=== PATIENT | male | born 1975 | race Caucasian/White ===

== ENCOUNTER 2018-07-16 23:52 | Emergency (ER) | payer BC ==
--- NOTE | 2018-07-17 00:56 | ED ---
General Adult HPI - General Chief complaint: Skin/Abscess/Foreign Body Stated complaint: Shingles Time Seen by Provider: 07/16/18 23:59 Source: patient Mode of arrival: ambulatory Limitations: no limitations - History of Present Illness Initial comments: 43-year-old male patient presents to the emergency department today for evaluation of shingles lesions to the right side of his face. Patient states he was seen and evaluated by his primary care physician yesterday diagnosed with shingles and started on valacyclovir. Patient was instructed to present to the emergency department if lesions should start to move closer to the eye. Patient states that he developed a lesion to the right lower eyelid and became concerned so presented here to be seen. Patient is reporting pain to the right side of his face. States some of the lesions have opened and are draining. He denies any discomfort to the eye. Denies any difficulty with vision. He denies fevers or chills with this. - Related Data Previous Rx's Medication Instructions Recorded Ibuprofen [Motrin] 600 mg PO Q8HR PRN #30 tab 07/17/18 Allergies Allergy/AdvReac Type Severity Reaction Status Date / Time Penicillins Allergy Wheezing Verified 07/16/18 23:58 shellfish derived [Shrimp] Allergy Anaphylaxis Verified 07/16/18 23:58 Sulfa (Sulfonamide Allergy Wheezing Verified 07/16/18 23:58 Antibiotics) Review of Systems ROS Statement: Those systems with pertinent positive or pertinent negative responses have been documented in the HPI. ROS Other: All systems not noted in ROS Statement are negative. Past Medical History Past Medical History: Hyperlipidemia Additional Past Medical History / Comment(s): hypercalcemia History of Any Multi-Drug Resistant Organisms: None Reported Past Surgical History: Tonsillectomy Past Psychological History: No Psychological Hx Reported Smoking Status: Never smoker Past Alcohol Use History: Occasional Past Drug Use History: None Reported General Exam Limitations: no limitations General appearance: alert, in no apparent distress, other (Social well- developed, well-nourished adult male patient in no acute distress. Vital signs upon presentation are temperature 98.6F, pulse 105, respirations 18, blood pressure 143/90, pulse ox 97% on room air.) Eye exam: Present: normal appearance, PERRL, EOMI, other (No conjunctival injection, no drainage.). Absent: scleral icterus, conjunctival injection, periorbital swelling ENT exam: Present: normal exam, normal oropharynx, mucous membranes moist Respiratory exam: Present: normal lung sounds bilaterally. Absent: respiratory distress, wheezes, rales, rhonchi, stridor Cardiovascular Exam: Present: regular rate, normal rhythm, normal heart sounds. Absent: systolic murmur, diastolic murmur, rubs, gallop, clicks Neurological exam: Present: alert, oriented X3, CN II-XII intact Psychiatric exam: Present: normal affect, normal mood Skin exam: Present: warm, dry, intact, normal color. Absent: rash Course Vital Signs 07/16/18 07/17/18 23:55 01:27 Temperature 98.6 F 98.7 F Pulse Rate 105 H 79 Respiratory 18 20 Rate Blood Pressure 143/90 135/78 O2 Sat by Pulse 97 99 Oximetry Medical Decision Making - Medical Decision Making 43-year-old male patient presents to the emergency department today for evaluation of shingles rash of the right side of his face. Patient is concerned because the rash is moving closer to his right eye. Physical examination did reveal lesion to the right lower eyelid, mild surrounding edema but no evidence for conjunctival injection or eye lesions. Patient denies any eye discomfort or pain. Denies any visual disturbance. He'll be discharged home at this time to follow-up with ophthalmology for recheck in the morning. Return parameters discussed in detail. He verbalizes understanding and agrees with this plan. Disposition Clinical Impression: Shingles Disposition: HOME SELF-CARE Condition: Good Instructions (If sedation given, give patient instructions): Shingles (ED) Additional Instructions: Take medications as directed. 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 Return to the emergency department immediately for any new, worsening, or concerning symptoms. Prescriptions: Ibuprofen [Motrin] 600 mg PO Q8HR PRN #30 tab PRN Reason: Pain Is patient prescribed a controlled substance at d/c from ED?: No Referrals: Maurilio Russo MD [Primary Care Provider] - 1-2 days Alvina Shay MD [STAFF PHYSICIAN] - 1-2 days Time of Disposition: 00:56
[2018-07-17] MEDS ORDERED: IBUPROFEN 600 MG STARTER PACK 4 TAB BTL PO STA (00:57)
[2018-07-17] MEDS ORDERED: ACET/COD 300 MG/30 MG STARTER PACK 6 TAB BTL PO STA (00:57)
[2018-07-17 01:35] VITALS: BP 135/78; PULSE 79; RESP 20; TEMP 98.7
== END 2018-07-17 01:28 | disposition home or self-care (01) ==
LOC: EC 23:52
DX: B02.9 Zoster without complications (principal); Z88.0 Allergy status to penicillin; Z91.013 Allergy to seafood; Z88.2 Allergy status to sulfonamides
CPT/HCPCS: 99282

== ENCOUNTER → 2018-08-13 | Outpatient (CLI) | payer BC ==
--- NOTE | 2018-08-13 09:15 | US ---
EXAMINATION TYPE: US liver DATE OF EXAM: 08/13/2018 COMPARISON: NONE CLINICAL HISTORY: R74.8 Abnormal Levels of other serum enzymes. EXAM MEASUREMENTS: Liver Length: 13.7 cm Gallbladder Wall: 0.2 cm CBD: 0.4 cm Right Kidney: 10.4 x 5.4 x 5.3cm Pancreas: Tail obscured by overlying bowel gas Liver: wnl as seen, somewhat obscured by overlying bowel gas Gallbladder: wnl Evidence for sonographic Rodriguez's sign: no CBD: wnl Right Kidney: No hydronephrosis or masses seen, partially obscured by overlying bowel gas IMPRESSION: The liver remains homogeneous in echotexture throughout despite elevated liver function t ests. No focal hepatic mass is seen on today's examination.
== END | disposition home or self-care (01) ==
LOC: RADUSWWP 06:55
PROVIDERS: ATTEND Family Medicine
DX: R74.8 Abnormal levels of other serum enzymes (principal)
CPT/HCPCS: 76705

== ENCOUNTER 2021-01-23 20:41 | Emergency (ER) | payer BC ==
[2021-01-23] MEDS ORDERED: SODIUM CHLORIDE 0.9% 1,000 ML IV STA (20:58)
--- NOTE | 2021-01-23 21:17 | ED ---
Syncope HPI - General Chief Complaint: Syncope Stated Complaint: COVID+,Syncope Time Seen by Provider: 01/23/21 21:06 Source: patient, family Mode of arrival: ambulatory Limitations: no limitations - History of Present Illness Initial Comments: This patient is a 45-year-old man who presents after having a couple of syncopal episodes today. The patient reports that he had not been feeling well, having fevers, cough, myalgias, and he had a send out Covid test. The test came back positive today. He notes that he didn't have much in way of oral intake over the past 2-3 days. He started taking some oral intake today and reports that when he was getting out of bed to get a drink he felt lightheaded, saw spots and then passed out. When his partner was helping him get back into bed he passed out again. The patient denies any trauma as result of passing him falling. No headache, neck pain, back, chest or abdomen pain. The patient states that he feels back to his baseline now. He did have another episode of lightheadedness while checking in to be seen here. He has not had chest pain, palpitations, dyspnea, diaphoresis. MD Complaint: loss of consciousness, collapsed -: hour(s) Prodromal Symptoms: vision changes, lightheaded -: second(s) Witnessed: yes - by bystander Injuries Sustained Associated with Event: None Current Symptoms: back to baseline Context: getting out of bed Treatments Prior to Arrival: none - Related Data Home Medications Medication Instructions Recorded Confirmed Atorvastatin [Lipitor] 20 mg PO HS 01/23/21 01/23/21 Cholecalciferol [Vitamin D3 (25 25 mcg PO DAILY 01/23/21 01/23/21 Mcg = 1000 Iu)] Multivitamins, Thera [Multivitamin 1 tab PO DAILY 01/23/21 01/23/21 (formulary)] Allergies Allergy/AdvReac Type Severity Reaction Status Date / Time Penicillins Allergy Wheezing Verified 01/23/21 22:06 shellfish derived [Shrimp] Allergy Anaphylaxis Verified 01/23/21 22:06 Sulfa (Sulfonamide Allergy Wheezing Verified 01/23/21 22:06 Antibiotics) Review of Systems ROS Statement: Those systems with pertinent positive or pertinent negative responses have been documented in the HPI. ROS Other: All systems not noted in ROS Statement are negative. Constitutional: Reports: as per HPI, fever, chills Eyes: Denies: vision change Respiratory: Reports: cough. Denies: dyspnea, wheezes, hemoptysis Cardiovascular: Reports: syncope. Denies: chest pain, palpitations, orthopnea, edema Gastrointestinal: Denies: abdominal pain, nausea, vomiting, diarrhea, constipation Genitourinary: Denies: dysuria, hematuria Musculoskeletal: Denies: back pain Skin: Denies: rash Neurological: Denies: headache, weakness, numbness Past Medical History Past Medical History: Hyperlipidemia Additional Past Medical History / Comment(s): hypercalcemia History of Any Multi-Drug Resistant Organisms: None Reported Past Surgical History: Tonsillectomy Past Psychological History: No Psychological Hx Reported Smoking Status: Never smoker Past Alcohol Use History: Occasional Past Drug Use History: None Reported General Exam Limitations: no limitations General appearance: alert, in no apparent distress Head exam: Present: atraumatic, normocephalic Eye exam: Present: normal appearance. Absent: scleral icterus, conjunctival injection ENT exam: Present: normal oropharynx Neck exam: Present: normal inspection, full ROM Respiratory exam: Present: normal lung sounds bilaterally. Absent: respiratory distress, wheezes, rales, rhonchi, stridor Cardiovascular Exam: Present: regular rate, normal rhythm, normal heart sounds. Absent: systolic murmur, diastolic murmur, rubs, gallop GI/Abdominal exam: Present: soft. Absent: distended, tenderness, guarding, rebound, rigid, mass Extremities exam: Present: normal inspection, normal capillary refill. Absent: pedal edema, calf tenderness Back exam: Present: normal inspection. Absent: CVA tenderness (R), CVA tenderness (L) Neurological exam: Present: alert, oriented X3, CN II-XII intact. Absent: motor sensory deficit Skin exam: Present: warm, dry, intact, normal color. Absent: rash Course Vital Signs 01/23/21 01/23/21 01/23/21 20:44 21:10 22:43 Temperature 101.1 F H 99.4 F Pulse Rate 47 L 73 Respiratory 24 16 Rate Blood Pressure 86/60 121/73 O2 Sat by Pulse 97 95 Oximetry EKG Findings - EKG Results: EKG: interpreted by ERMJoelle, WNL, sinus rhythm (Rate 68 bpm), normal axis, normal QRS, normal ST/T, no acute changes Medical Decision Making - Lab Data Result diagrams: 01/23/21 21:05 01/23/21 21:05 Lab Results 01/23/21 01/23/21 01/23/21 Range/Units 21:05 21:05 21:05 WBC 2.1 L (3.8-10.6) k/uL RBC 5.06 (4.30-5.90) m/uL Hgb 15.8 (13.0-17.5) gm/dL Hct 43.0 (39.0-53.0) % MCV 85.0 (80.0-100.0) fL MCH 31.2 (25.0-35.0) pg MCHC 36.7 (31.0-37.0) g/dL RDW 12.9 (11.5-15.5) % Plt Count 109 L (150-450) k/uL MPV 8.1 Neutrophils % 62 % Lymphocytes % 30 % Monocytes % 6 % Eosinophils % 0 % Basophils % 0 % Neutrophils # 1.3 (1.3-7.7) k/uL Lymphocytes # 0.6 L (1.0-4.8) k/uL Monocytes # 0.1 (0-1.0) k/uL Eosinophils # 0.0 (0-0.7) k/uL Basophils # 0.0 (0-0.2) k/uL Hyperchromasia Marked Poikilocytosis Slight D-Dimer 0.73 H (<0.60) mg/L FEU Sodium 132 L (137-145) mmol/L Potassium 3.7 (3.5-5.1) mmol/L Chloride 100 (98-107) mmol/L Carbon Dioxide 24 (22-30) mmol/L Anion Gap 8 mmol/L BUN 14 (9-20) mg/dL Creatinine 0.72 (0.66-1.25) mg/dL Est GFR (CKD-EPI)AfAm >90 (>60 ml/min/1.73 sqM) Est GFR (CKD-EPI)NonAf >90 (>60 ml/min/1.73 sqM) Glucose 129 H (74-99) mg/dL Calcium 8.7 (8.4-10.2) mg/dL Total Bilirubin 0.6 (0.2-1.3) mg/dL AST 53 (17-59) U/L ALT 44 (4-49) U/L Alkaline Phosphatase 43 (38-126) U/L Troponin I (0.000-0.034) ng/mL Total Protein 6.1 L (6.3-8.2) g/dL Albumin 3.6 (3.5-5.0) g/dL Urine Color Urine Appearance (Clear) Urine pH (5.0-8.0) Ur Specific [place] (1.001-1.035) Urine Protein (Negative) Urine Glucose (UA) (Negative) Urine Ketones (Negative) Urine Blood (Negative) Urine Nitrite (Negative) Urine Bilirubin (Negative) Urine Urobilinogen (<2.0) mg/dL Ur Leukocyte Esterase (Negative) 01/23/21 01/23/21 Range/Units 21:05 22:48 WBC (3.8-10.6) k/uL RBC (4.30-5.90) m/uL Hgb (13.0-17.5) gm/dL Hct (39.0-53.0) % MCV (80.0-100.0) fL MCH (25.0-35.0) pg MCHC (31.0-37.0) g/dL RDW (11.5-15.5) % Plt Count (150-450) k/uL MPV Neutrophils % % Lymphocytes % % Monocytes % % Eosinophils % % Basophils % % Neutrophils # (1.3-7.7) k/uL Lymphocytes # (1.0-4.8) k/uL Monocytes # (0-1.0) k/uL Eosinophils # (0-0.7) k/uL Basophils # (0-0.2) k/uL Hyperchromasia Poikilocytosis D-Dimer (<0.60) mg/L FEU Sodium (137-145) mmol/L Potassium (3.5-5.1) mmol/L Chloride (98-107) mmol/L Carbon Dioxide (22-30) mmol/L Anion Gap mmol/L BUN (9-20) mg/dL Creatinine (0.66-1.25) mg/dL Est GFR (CKD-EPI)AfAm (>60 ml/min/1.73 sqM) Est GFR (CKD-EPI)NonAf (>60 ml/min/1.73 sqM) Glucose (74-99) mg/dL Calcium (8.4-10.2) mg/dL Total Bilirubin (0.2-1.3) mg/dL AST (17-59) U/L ALT (4-49) U/L Alkaline Phosphatase (38-126) U/L Troponin I <0.012 (0.000-0.034) ng/mL Total Protein (6.3-8.2) g/dL Albumin (3.5-5.0) g/dL Urine Color Yellow Urine Appearance Clear (Clear) Urine pH 6.0 (5.0-8.0) Ur Specific [place] 1.014 (1.001-1.035) Urine Protein Negative (Negative) Urine Glucose (UA) Negative (Negative) Urine Ketones Negative (Negative) Urine Blood Negative (Negative) Urine Nitrite Negative (Negative) Urine Bilirubin Negative (Negative) Urine Urobilinogen 2.0 (<2.0) mg/dL Ur Leukocyte Esterase Negative (Negative) Disposition Clinical Impression: Syncope, COVID-19 Disposition: HOME SELF-CARE Condition: Good Instructions (If sedation given, give patient instructions): Syncope (ED), Coronavirus Disease 2019 (COVID-19) Is patient prescribed a controlled substance at d/c from ED?: No Referrals: Maurilio Russo MD [Primary Care Provider] - 1-2 days
--- NOTE | 2021-01-23 21:17 | XR ---
EXAMINATION TYPE: XR chest 1V portable DATE OF EXAM: 01/23/2021 COMPARISON: NONE HISTORY: Syncope TECHNIQUE: Single view FINDINGS: Heart and mediastinum are normal. Lungs are clear. Diaphragm is normal. Bony thorax is inta ct. IMPRESSION: Normal chest.
[2021-01-23] MEDS ORDERED: ACETAMINOPHEN TAB 325 MG TAB PO STA (21:19)
[2021-01-23] MEDS ORDERED: IBUPROFEN 400 MG TAB PO STA (21:19)
[2021-01-23 21:32] LABS: Basophils % (A) 0 %; Eosinophils % (A) 0 %; HGB 15.8 gm/dL (13.0-17.5); Hyperchromasia Marked; Lymphocytes # (A) 0.6 k/uL (1.0-4.8); Lymphocytes % (A) 30 %; MCH 31.2 pg (25.0-35.0); MCHC 36.7 g/dL (31.0-37.0); Mean Platelet Volume 8.1; Monocytes # (A) 0.1 k/uL (0-1.0); Monocytes % (A) 6 %; Neutrophils # (A) 1.3 k/uL (1.3-7.7); Neutrophils % (A) 62 %; Platelet Count 109 k/uL (150-450); Poikilocytosis Slight; RBC 5.06 m/uL (4.30-5.90); RDW 12.9 % (11.5-15.5); WBC 2.1 k/uL (3.8-10.6)
[2021-01-23 21:50] LABS: ALT 44 U/L (4-49); AST 53 U/L (17-59); African American GFR (CKD) >90 (>60 ml/min/1.73 sqM); Albumin 3.6 g/dL (3.5-5.0); Alkaline Phosphatase 43 U/L (38-126); Anion Gap 8 mmol/L; Blood Urea Nitrogen 14 mg/dL (9-20); Calcium 8.7 mg/dL (8.4-10.2); Carbon Dioxide 24 mmol/L (22-30); Chloride 100 mmol/L (98-107); Glucose 129 mg/dL (74-99); Non-African American GFR(CKD) >90 (>60 ml/min/1.73 sqM); Potassium 3.7 mmol/L (3.5-5.1); Sodium 132 mmol/L (137-145); Total Bilirubin 0.6 mg/dL (0.2-1.3); Total Protein 6.1 g/dL (6.3-8.2)
[2021-01-23 23:07] LABS: Appearance,Urine Clear (Clear); Bilirubin,Urine Negative (Negative); Blood,Urine Negative (Negative); Color,Urine Yellow; Glucose,Urine (UA) Negative (Negative); Ketones,Urine Negative (Negative); Leukocyte Esterase,Urine Negative (Negative); Nitrite,Urine Negative (Negative); Protein,Urine Negative (Negative); Specific Gravity,Urine 1.014 (1.001-1.035)
[2021-01-24] MEDS ORDERED: BAMLANIVIMAB (EUA) 700 MG, ETESEVIMAB (EUA) 1,400 MG in SODIUM CHLORIDE 0.9% 50 ML IVPB ONE (00:15)
[2021-01-24] MEDS ORDERED: SODIUM CHLORIDE 0.9% 50 ML IVPB ONE (00:15)
[2021-01-24 02:11] VITALS: BP 117/72; PULSE 60; RESP 18; TEMP 97.9
== END 2021-01-24 02:11 | disposition home or self-care (01) ==
LOC: EC 20:41
DX: U07.1 COVID-19 (principal); R55 Syncope and collapse; R42 Dizziness and giddiness; E78.5 Hyperlipidemia, unspecified; Z88.0 Allergy status to penicillin; Z88.2 Allergy status to sulfonamides; Z91.013 Allergy to seafood; Z79.899 Other long term (current) drug therapy
CPT/HCPCS: 36415; 93005; 85379; 80053; 84484; 85025; 81003; 71045; 99284; 96365; J3490